=== PATIENT | male | born 1960 | race Caucasian/White ===

== ENCOUNTER → 2021-07-10 | Outpatient (CLI) | payer OTHER ==
[~2021-07-10] MED LIST: AMBIEN 10 MG TA10 MG PO; AMBIEN CR 6.26.25 MG PO; FISH OIL 1,0001 EAC5 PO; HYDROCODON-ACE1 EACH PO; IBUPROFEN 600600 M1 PO; MEDROLDOSEPACK PO; MULTIVITAMINS; NASONEX17 GM NASAL; PERCOCET PO; RESVERATROL100 MG PO; RISPERDAL 1 MG T1 MG PO; VITAMIN D400 UNI1 PO
== END ==
LOC: SJCVCIMAG 13:56
PROVIDERS: ATTEND Internal Medicine Cardiovascular Disease
DX: I49.3 Ventricular premature depolarization (principal)